=== PATIENT | female | born 1975 | race African-American/Black ===

== ENCOUNTER 2017-07-03 09:03 | Outpatient (CLI) | payer OTHER | END 2017-07-03 09:04 | disposition home or self-care (01) | LOC: BICMAMMO 09:03 | PROVIDERS: ATTEND Family Medicine | DX: Z12.31 Encounter for screening mammogram for malignant neoplasm of breast (principal) | CPT/HCPCS: 77067 ==

== ENCOUNTER 2017-12-11 10:40 | Emergency (ER) | payer OTHER ==
--- NOTE | 2017-12-11 13:21 | ULT ---
LEFT LOWER EXTREMITY VENOUS DOPPLER: Date: 12/11/17 HISTORY: Pain, edema, swelling. COMPARISON: Ultrasound from 2009. TECHNIQUE: Real-time Toro scale and color Doppler with spectral analysis of the left lower extremity venous syst em was performed. Common femoral, femoral, proximal portions of greater saphenous and deep femoral ve ins, as well as the popliteal and posterior tibial veins were interrogated. FINDINGS: Normal flow, augmentation, and compression. At the level of the calf, there is a complex collection o f fluid, likely retracting clot. IMPRESSION: 1. No deep venous thrombosis. 2. Likely clot at the area of pain left calf. MRI may be beneficial if clinically warranted. POS: VINCENT
[2017-12-11] MEDS ORDERED: Acetaminophen 500 MG TAB ONE (14:22)
== END 2017-12-11 14:36 | disposition home or self-care (01) ==
LOC: ERS 10:40
DX: R88.8 Abnormal findings in other body fluids and substances (principal); E66.9 Obesity, unspecified; F32.9 Major depressive disorder, single episode, unspecified; F17.210 Nicotine dependence, cigarettes, uncomplicated; Z79.899 Other long term (current) drug therapy

== ENCOUNTER 2018-01-11 18:54 | Emergency (ER) | payer OTHER ==
[2018-01-11] MEDS ORDERED: Oxymetazoline HCl 0.05% ( 15 ML ) ONE (20:39)
== END 2018-01-11 21:26 | disposition home or self-care (01) ==
LOC: ERS 18:54
DX: R04.0 Epistaxis (principal); F32.9 Major depressive disorder, single episode, unspecified; F17.210 Nicotine dependence, cigarettes, uncomplicated; Z79.899 Other long term (current) drug therapy; E66.9 Obesity, unspecified
CPT/HCPCS: 99283

== ENCOUNTER 2018-02-11 10:23 | Emergency (ER) | payer OTHER | END 2018-02-11 11:40 | disposition home or self-care (01) | LOC: ERS 10:23 | DX: N93.9 Abnormal uterine and vaginal bleeding, unspecified (principal); E66.9 Obesity, unspecified; F32.9 Major depressive disorder, single episode, unspecified; F17.210 Nicotine dependence, cigarettes, uncomplicated; Z79.899 Other long term (current) drug therapy; Z71.6 Tobacco abuse counseling | CPT/HCPCS: 99406 ==

== ENCOUNTER 2018-07-25 09:32 | Outpatient (CLI) | payer OTHER ==
--- NOTE | 2018-07-25 10:16 | MMO ---
Bilateral MAMMO Bilat Screen DDI. CLINICAL HISTORY: Patient is 43 years old and is seen for screening. The patient has no family history of breast cancer. The patient has no personal history of cancer. VIEWS: The views performed were: bilateral craniocaudal and bilateral mediolateral oblique. FILMS COMPARED: The present examination has been compared to prior imaging studies performed at [facility] on 04/06/2012, and at [facility] on 06/20/2016, 07/01/2016 and 07/03/2017. This study has been interpreted with the assistance of computer-aided detection. MAMMOGRAM FINDINGS: There are scattered fibroglandular densities. There are no suspicious masses, suspicious calcifications, or new areas of architectural distortion. IMPRESSION: THERE IS NO MAMMOGRAPHIC EVIDENCE OF MALIGNANCY. A ROUTINE FOLLOW-UP MAMMOGRAM IN 1 YEAR IS RECOMMENDED. ACR BI-RADS Category 1 - Negative MAMMOGRAPHY NOTE: 1. A negative mammogram report should not delay a biopsy if a dominant of clinically suspicious mass is present. 2. Approximately 10% to 15% of breast cancers are not detected by mammography. 3. Adenosis and dense breasts may obscure an underlying neoplasm.
== END 2018-07-25 09:33 | disposition home or self-care (01) ==
LOC: BICMAMMO 09:32
PROVIDERS: ATTEND Family Medicine
DX: Z12.31 Encounter for screening mammogram for malignant neoplasm of breast (principal)
CPT/HCPCS: 77067

== ENCOUNTER 2018-08-13 09:04 | Outpatient (CLI) | payer OTHER ==
--- NOTE | 2018-08-13 10:15 | ULT ---
US Pelvic Transvag HISTORY: Pelvic pain COMPARISON: None TECHNIQUE: Multiple grayscale and color Doppler images were obtained in a transabdominal and transvag inal pelvic ultrasound. Spectral analysis of the Doppler waveforms of the ovaries were performed. FINDINGS: UTERUS: Heterogeneous echotexture. There are foci of altered echotexture, one of which measures 2.2 c m in diameter and the other measures 1.6 cm in diameter, indicative of uterine fibroids. ENDOMETRIAL STRIPE: 13 mm., Thickened. No free fluid is present. RIGHT OVARY: Not visualized for comment LEFT OVARY:Not visualized for comment IMPRESSION: Heterogeneity of uterus with foci of altered echotexture indicative of uterine fibroids. Thickened endometrium. Recommend 6 week follow-up pelvic ultrasound to confirm expected physiologic r esolution.
--- NOTE | 2018-08-13 10:56 | ULT ---
COMPLETE ABDOMEN ULTRASOUND: INDICATION: Right lower quadrant abdominal pain. COMPARISON: Prior CT of the abdomen and pelvis 09/11/2008. FINDINGS: Focal hepatic lesion is evident. There is mild fatty infiltration of the liver. The gallbladder is surgically absent. The common bile duct is mildly prominent measuring 6.9 mm. Ap propriate hepatopetal flow is seen in the main portal vein. The right kidney measured 9.2 x 3.9 cm without focal renal lesion or hydronephrosis. The spleen measured 9.9 cm in length. The left kidney measured 9.7 x 5.7 cm without focal renal lesion or hydronephrosis. No free fluid evident. The visualized aorta and IVC were within normal limits. IMPRESSION: 1. Fatty liver. 2. Cholecystectomy. POS: CET
== END 2018-08-13 09:05 | disposition home or self-care (01) ==
LOC: BICULT 09:04
PROVIDERS: ATTEND Family Medicine
DX: R10.31 Right lower quadrant pain (principal); K76.0 Fatty (change of) liver, not elsewhere classified; R93.89 Abnormal findings on diagnostic imaging of other specified body structures; R93.5 Abnormal findings on diagnostic imaging of other abdominal regions, including retroperitoneum; Z90.49 Acquired absence of other specified parts of digestive tract
CPT/HCPCS: 76700; 76856